=== PATIENT | female | born 1960 | race Caucasian/White ===

== ENCOUNTER 2017-09-03 01:18 | Emergency (ER) | payer MEDICAID, SELFPAY ==
[2017-09-03 01:19] VITALS: BP 143/64; PULSE 60; RESP 18; TEMP 36.6; O2SAT 97; BMI 30.5
--- NOTE | 2017-09-03 01:42 | RAD_ITS ---
STUDY: X-RAY - LEFT WRIST REASON FOR EXAM: Female, 56 years old. Left-sided wrist pain after recent fall. TECHNIQUE: 3 view(s) of the wrist were obtained. COMPARISON: Prior comparison studies are not available for review at this time. FINDINGS: There appears to be a displaced comminuted intra-articular fracture of distal radius. The fracture extends into the distal radioulnar articulation. Fracture extends into the radiocarpal joint. Normal carpal bones. Normal carpal articulations. Normal carpometacarpal articulation of the thumb. Normal second through fifth carpometacarpal articulations. Normal visualized metacarpal bones. There is moderate soft tissue swelling of the wrist and distal forearm. RAD/Wrist min 3 Views IMPRESSION: Comminuted displaced intra-articular fracture of the distal radius. Electronically Signed: Jade Momin MD at 2:11 EDT , Service support ,
[2017-09-03] MEDS: Diphth,Pertuss(Acell),Tet Vac 0.5 ML Vial IM (02:06)
--- NOTE | 2017-09-03 02:18 | ED.VISSUMM ---
- ER Visit Summary Date of Service: 09/03/17 Chief Complaint: [Injury left wrist] History of Present Illness: The patient is a 56 F [presents to the emergency department with an injury to her left wrist that occurred at approximately 1-1/2 hours ago. Patient states that she was dancing when she lost her balance and fell. Patient try to catch herself on her left wrist and injured it. Patient denies striking her head or loss of consciousness. Patient denies any other injuries. Patient is right-hand dominant. Patient states that she had about 7 beers to drink tonight.] Physical Examination: [HEENT-PERRLA, EOMI. Cranial nerves II through XII grossly intact. TMs clear. Mucous membranes moist. No adenopathy. Head is atraumatic. No C-spine tenderness on palpation with normal active range of motion is painless. Cardiovascular-regular rate and rhythm without murmur or ectopy Lungs-clear to auscultation, chest wall stable without crepitus or subcu emphysema Abdomen-normoactive bowel sounds, soft, nontender, no rebound or rigidity, no peritoneal signs. Extremities-intact ?4, normal range of motion, normal pulses. Left wrist-patient has obvious deformity with soft tissue swelling noted. Patient has superficial abrasion to the volar aspect of the wrist. I do not feel this is from an open fracture. Simply has small skin avulsion of about 2 mm. Patient neurovascular intact distally. Patient has no pain at the elbow. Test Results: [X-rays of the left wrist obtained showed a distal radius fracture intra-articular.] Emergency Department Course and Treatment: [I discussed case with Dr. Cecil Momin. Dr. Momin evaluated the x-rays. Given the patient has been drinking and is intoxicated was felt she was not a good candidate for procedural sedation. I was asked to splint her wrist and have patient follow-up with Dr. Cecil Momin's office.] Treatment Plan: [Patient was placed in a AP splint patient will be following up with orthopedics. Patient given a sling and a prescription for [place]]. Given the fact the patient's been drinking patient was given Tylenol in the emergency department and was not given narcotics. Disposition: [Discharged to home in stable condition. Patient advised to follow-up with orthopedics.] Impression: [Left distal radius fracture-closed] This note was generated with [employer] dictation software. It may contain incorrect words, spelling, and punctuation that were not noted in review of the chart prior to signing ED Disposition - Plan for ED Patient: Chief Complaint: Upper Extremity Injury Referrals: Oswaldo Chris MD [Primary Care Provider] -
--- NOTE | 2017-09-03 02:22 | ED.DCSUM_ITS ---
- ER Visit Summary Date of Service: 09/03/17 Chief Complaint: [Injury left wrist] History of Present Illness: The patient is a 56 F [presents to the emergency department with an injury to her left wrist that occurred at approximately 1-1/ 2 hours ago. Patient states that she was dancing when she lost her balance and fell. Patient try to catch herself on her left wrist and injured it. Patient denies striking her head or loss of consciousness. Patient denies any other injuries. Patient is right-hand dominant. Patient states that she had about 7 beers to drink tonight.] Physical Examination: [HEENT-PERRLA, EOMI. Cranial nerves II through XII grossly intact. TMs clear. Mucous membranes moist. No adenopathy. Head is atraumatic. No C-spine tenderness on palpation with normal active range of motion is painless. Cardiovascular-regular rate and rhythm without murmur or ectopy Lungs-clear to auscultation, chest wall stable without crepitus or subcu emphysema Abdomen-normoactive bowel sounds, soft, nontender, no rebound or rigidity, no peritoneal signs. Extremities-intact ?4, normal range of motion, normal pulses. Left wrist- patient has obvious deformity with soft tissue swelling noted. Patient has superficial abrasion to the volar aspect of the wrist. I do not feel this is from an open fracture. Simply has small skin avulsion of about 2 mm. Patient neurovascular intact distally. Patient has no pain at the elbow. Test Results: [X-rays of the left wrist obtained showed a distal radius fracture intra-articular.] Emergency Department Course and Treatment: [I discussed case with Dr. Cecil Momin. Dr. Momin evaluated the x-rays. Given the patient has been drinking and is intoxicated was felt she was not a good candidate for procedural sedation. I was asked to splint her wrist and have patient follow-up with Dr. Cecil Momin's office.] Treatment Plan: [Patient was placed in a AP splint patient will be following up with orthopedics. Patient given a sling and a prescription for [place]]. Given the fact the patient's been drinking patient was given Tylenol in the emergency department and was not given narcotics. Disposition: [Discharged to home in stable condition. Patient advised to follow -up with orthopedics.] Impression: [Left distal radius fracture-closed] This note was generated with [employer] dictation software. It may contain incorrect words, spelling, and punctuation that were not noted in review of the chart prior to signing ED Disposition - Plan for ED Patient: Chief Complaint: Upper Extremity Injury Referrals: Oswaldo Chris MD [Primary Care Provider] -
--- NOTE | 2017-09-03 02:22 | ED.DEP ---
ED Disposition - Plan for ED Patient: Chief Complaint: Upper Extremity Injury Instructions: ED Fx Colles Wrist No Redu Requ Prescriptions: Hydrocodone Bitart/Apap 5-325 [[place] 5/325] 1 - 2 tab PO Q4H PRN PRN 5 Days #20 tab PRN Reason: Pain Referrals: Oswaldo Chris MD [Primary Care Provider] - 3-5 Days
[2017-09-03] MEDS: Acetaminophen 325 MG Tablet 650 MG PO (02:30)
[2017-09-03] MEDS: HYDROcodone Bitartrate/Apap 5/325 Tablet PO (02:30)
[2017-09-03 02:34] VITALS: RESP 18
== END 2017-09-03 02:34 | disposition home or self-care (01) ==
LOC: ED 01:46
PROVIDERS: Emergency Provider Emergency Medicine; Family Provider Family Medicine; PCP Family Medicine
DX: S52.572A Other intraarticular fracture of lower end of left radius, initial encounter for closed fracture (principal); I25.10 Atherosclerotic heart disease of native coronary artery without angina pectoris; I10 Essential (primary) hypertension; E78.00 Pure hypercholesterolemia, unspecified; Z79.82 Long term (current) use of aspirin; Z79.02 Long term (current) use of antithrombotics/antiplatelets; Z79.899 Other long term (current) drug therapy; W18.30XA Fall on same level, unspecified, initial encounter; Y93.41 Activity, dancing; Y92.009 Unspecified place in unspecified non-institutional (private) residence as the place of occurrence of the external cause; Y99.8 Other external cause status
CPT/HCPCS: 73110; 90471; 90715; 99283

== ENCOUNTER 2018-02-09 14:30 | Outpatient (RCR) | payer MEDICARE, SELFPAY ==
--- NOTE | 2017-12-15 15:48 | HP.OTEVAL_ITS ---
Patient's Visit Information SIL SEPULVEDA is a 57 year old F, referred to Occupational Therapy by Bharat Uriostegui MD, with a diagnosis of left lower end radius fx. Date of Evaluation: 12/15/17 Occupational Therapist: NORM Dill/Tyrone, CHT - Subjective Subjective: This 57 year old female was seen for intial OT eval with dx of left lower end radius fx. Pt states she had on fallSeptember 02 and underwent sx on September 14, 2017. pt bo reports she is unable to use her left hand with her BADLS and IADls due to pain and weakness. pt would like to return to using her left hand at her PLOF. - Pain left hand 0 Pain Intensity Range: 0, 5 - ROM Forearm: supination right 70 left 40 Wrist: right 65/60 left 45/30 ROM Comments: Right MCP IF 0/85 left 0/80 PIP Right 0/100 left 0/65 DIP right 0/ 65 left 0/20. Right MCP MF 0/85 left 0/70 PIP right 0/105 left 0/70 DIP right 0 /65 left 0/30. Right MCP RF 0/90 left 0/50 PIP right 0/110 left 0/70 DIP right 0/60 left 0/28. 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 pt will demo a increase in left lateral and tripod pinch by 5# to increase pts ind. with FMS by d/c Goal:: pt will demo the ability to form a composite left fist to hold coins by d /c. pt will demo a increase in left forarm supination by 15 degrees to increase pts ind.with BADLS and IADLS by D/c. pt will demo a increase in left wrist ROM by 20 degrees to return pt to PLOF with meal prep tasks by d/c Goal:: pt will report pain no greater than 2/10 with use of left hand with BADLS and IADLS by d/c - Rehabilitation General Assessment: pt s/p 12 weeks ORIF of left radius. pt demo with limited ROM of wrist/forearm and composite fist of left hand. 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 pt demo need for skilled OTR/L, CHT services 2x week for 6 weeks to return pt to PLOF Rehabilitation Potential: Good - Anticipated Interventions Anticipated Interventions: A/AAROM/PROM, Strengthening, Triggerpoint Release, Modalities, Orthoses, Fine Motor Coord/Carlo - Visit Plan Frequency: 2x /Week Duration: 6 Weeks TEXT: Thank you for the opportunity to evaluate your patient. For Medicare and Medicare HMO plans, please review the plan of care and approve it. It will need to be FAXED BACK to us at [phone] for Medicare purposes. Please let me know if there are questions or concerns regarding this plan of care. Physician Signature: Date:
--- NOTE | 2018-02-09 14:55 | HP.OTDCSUM_ITS ---
HP - OT D/C Summary It has been my pleasure to treat SIL SEPULVEDA under orders from Bharat Uriostegui MD, for the diagnosis of left lower end radius fx for a total of 12 visit(s). Please see the following information for a summary of their discharge status. - Overall Improvement % Improvement: 50 - Objective Objective/Function: left IF MCP 85 PIP 100 DIP 55. left MF MCP 80PIP 100 DIP 60. Left RF MCP 75 PIP 105 DIP 65. left LF MCP 60 PIP 95 DIP 55. 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 Pt has made good gains with her end range of motion. pt states she is ind. with BADLS and IADLS pt states she has most problems with stiffness- pt ed. that this could take more time even up 9 months to resolve. PT is using warm water 2x a day to losen her fingers. PT has blocking orthosis at home - Goals Patient Goals: Regain Mobility, Regain Strength, Decrease Pain, Decrease Swelling/Stiffness, Improve Fine Motor Skills, Use Hand/Wrist/Arm Normally Again Goal:: Pt will demo a increaes in left malthouse laborer strength to 30# or greater to return pt to PLOF with ADLS and IADLS by d/c. pt will demo a increase in left lateral and tripod pinch by 5# to increase pts ind. with FMS by d/c Goal:: pt will demo the ability to form a composite left fist to hold coins by d /c. pt will demo a increase in left forarm supination by 15 degrees to increase pts ind.with BADLS and IADLS by D/c. pt will demo a increase in left wrist ROM by 20 degrees to return pt to PLOF with meal prep tasks by d/c Goal:: pt will report pain no greater than 2/10 with use of left hand with BADLS and IADLS by d/c - Plan Plan: pt to work with static progressive orthosis -pt to return in 2 weeks for new measurments. - D/C Information Discharge Comments: Pt was seen for 12 OT visits- pt was challenged with ROM and strength- pt gained ROM but continues to struggle with stiffness, and weak malthouse laborer. Pt reports she is ind/ with all BADLs and IADLS. pt is to cont with HEP, PRE and end range stretching. pt to call if she has questions if she has concerns to return to you. Pt D/C with HEP. If there are questions or concerns regarding this patient's occupational therapy , please fell free to call me at [phone]. Thank you for the referral of this patient. Sincerely, Gloria Fowler, OTR/L, CHT
== END 2018-02-09 16:02 | disposition home or self-care (01) ==
LOC: OT 14:30
PROVIDERS: Family Provider Family Medicine; PCP Family Medicine; Visit Provider Specialist
DX: S52.572D Other intraarticular fracture of lower end of left radius, subsequent encounter for closed fracture with routine healing (principal)
CPT/HCPCS: 97035; 97110; 97140; 97166; 97168; 97530; 97763; G8987; G8988